=== PATIENT | male | born 1955 | race Caucasian/White ===

== ENCOUNTER 2020-03-02 18:34 | Inpatient (IN) ==
[2020-03-02] MEDS ORDERED: ASPIRIN 325 MG TABLET PO STA (20:32)
[2020-03-02] MEDS ORDERED: MORPHINE 4 MG/1 ML VIAL IV STA (20:32)
[2020-03-02] MEDS ORDERED: ALBUTEROL/IPRATROPIUM 3 ML NEB RESP TX STA (20:32)
[2020-03-02] MEDS ORDERED: DEXAMETHASONE 4 MG/1 ML VIAL IV STA (20:35)
[2020-03-02 20:52] LABS: Basophils % 0.4 % (0.0-0.8); Eosinophils # 0.2 10*3/uL (0.0-0.87); Eosinophils % 2.3 % (0.00-10.9); Hematocrit 45.2 VOL% (42.0-52.0); Hemoglobin 14.7 GM/DL (14.0-18.0); Immature Granulocytes % 0.6 %; Immature Granulocytes Absolute 0.04 #; Lymphocytes # 1.5 10*3/uL (1.4-4.0); Lymphocytes % 20.7 % (21.2-54.2); Mean Corpuscular HGB Conc 32.5 GM/DL (32-36); Mean Corpuscular Volume 87.9 FL (87-102); Mean Platelet Volume 9.9 FL (9.6-12.0); Monocytes % 7.2 % (1.7-12.7); Neutrophils % 68.8 % (38.7-73.9); Platelet Count 132 T/CUMM (130-400); Red Blood Count 5.14 MC/CUMM (3.8-5.5); Red Cell Distribution Width 19.1 % (9.3-17.3); White Blood Count 7.3 T/CUMM (4-12)
[2020-03-02 21:01] LABS: PT Patient Result 10.8 SECS (9.8-11.9)
[2020-03-02 21:05] LABS: Albumin 3.3 G/DL (3.4-5.0); Bilirubin,Total 0.4 MG/DL (0.2-1.0); Osmolality,Calculated 269.1 MOS/KG (273-304)
[2020-03-02] MEDS ORDERED: ENOXAPARIN 100 MG/ML SYRINGE SUBCUT STA (21:37)
[2020-03-02] MEDS ORDERED: ENOXAPARIN 120 MG/0.8 ML SYRINGE SUBCUT STA (22:14)
[2020-03-02 22:41] LABS: Bilirubin,Urine Negative (Negative); Blood, Urine Negative (Negative); Glucose,Urine (UA) Negative (Negative); Ketones,Urine Negative (Negative); Mucus,Urine Occasional /LPF (Occasional); Nitrite,Urine Negative (Negative); Protein,Urine Negative; RBC,Urine 8 /HPF (0-4); Squamous Epithelial Cell,Urine Occasional /HPF (0-10); Urine Appearance CLEAR (Clear); Urine Color Straw (Yellow); Urine Specific Gravity > 1.060 (1.001-1.035); Urine Urobilinogen < 2.0 EU/DL (0.2-1.0); WBC,Urine <1 /HPF (0-6)
[2020-03-02] MEDS ORDERED: ONDANSETRON 4 MG/2 ML VIAL IV PRN (23:36)
[2020-03-02] MEDS ORDERED: ZALEPLON 5 MG CAPSULE PO PRN (23:36)
[2020-03-02] MEDS ORDERED: GLUCAGON 1 MG VIAL IM PRN (23:36)
[2020-03-02] MEDS ORDERED: DEXTROSE 50% 25 GM/50 ML VIAL IV PRN (23:36)
[2020-03-02] MEDS ORDERED: DEXTROSE 50% 25 GM/50 ML SYRINGE IV PRN (23:47)
[2020-03-03 06:33] LABS: Basophils % 0.3 % (0.0-0.8); Hematocrit 43.3 VOL% (42.0-52.0); Hemoglobin 14.3 GM/DL (14.0-18.0); Immature Granulocytes % 0.4 %; Immature Granulocytes Absolute 0.03 #; Lymphocytes # 0.6 10*3/uL (1.4-4.0); Lymphocytes % 8.5 % (21.2-54.2); Mean Corpuscular Volume 86.6 FL (87-102); Mean Platelet Volume 9.5 FL (9.6-12.0); Monocytes % 1.4 % (1.7-12.7); Neutrophils % 89.4 % (38.7-73.9); Platelet Count 116 T/CUMM (130-400); Red Cell Distribution Width 18.7 % (9.3-17.3); White Blood Count 7.1 T/CUMM (4-12)
[2020-03-03 06:40] LABS: Albumin 3.1 G/DL (3.4-5.0); Bilirubin,Total 0.4 MG/DL (0.2-1.0); Calcium 9.4 MG/DL (8.5-10.1); Osmolality,Calculated 271.2 MOS/KG (273-304); Total Protein 7.6 G/DL (6.4-8.3)
[2020-03-03] MEDS ORDERED: APIXABAN 5 MG TABLET PO SCH (08:10)
[2020-03-03] MEDS ORDERED: PANTOPRAZOLE 40 MG TABLET PO SCH (08:10)
[2020-03-03 12:34] VITALS: BP 150/91
== END 2020-03-03 11:43 | disposition home health service (06) | DRG 176 ==
LOC: N.ED 18:34 → INTOOBSV 23:36 → N.EDINP 23:36 → OBSVTOIN 23:36 → N.EDINP 03-03 11:43
PROVIDERS: ADMIT Family Medicine; ATTEND Family Medicine